=== PATIENT | male | born 1955 | race Caucasian/White ===

== ENCOUNTER 2019-01-20 20:17 | Emergency (ER) | payer BC ==
[~2019-01-20] VITALS: Ht 180.3 cm; Wt 74.8 kg
--- NOTE | 2019-01-20 20:20 | NUR ---
PT BIB [facility] WITH A C/O L SHOULDER PAIN S/P TRIP AND FALL. PT THEN HAD A NEAR SYNCOPAL EPISODE WITH EMS. PT HAS AND IV AIRPLANE TESTER AND REC'D 200 ML NS IN THE FIELD. PT IS ON THE MONITOR AND CONITINUOUS PULSE OX. PT WILL CONTINUE TO BE MONITORED.
--- NOTE | 2019-01-20 20:45 | NUR ---
XRAY IN PROGRESS AT THE BEDSIDE.
[2019-01-20] MEDS ORDERED: ACETAMINOPHEN 325 MG TABLET PO ONE (21:00)
[2019-01-20] MEDS ORDERED: ACETAMINOPHEN 325 MG TABLET ONE (21:08)
[2019-01-20] MEDS ORDERED: PROPOFOL 20 ML IV ONE (21:28)
[2019-01-20] MEDS ORDERED: PROPOFOL 200 MG/20 ML VIAL IV ONE (21:30)
--- NOTE | 2019-01-20 21:39 | NUR ---
CONSENT SIGNED FOR MODERATE SEDATION FOR LT SHOULDER REDUCTION AND IS IN THE CHART.
--- NOTE | 2019-01-20 21:39 | NUR ---
ANASTASIA BARBOZA, NATHANAEL, KISHAN AND RT ENE IS AT THE BEDSIDE.
--- NOTE | 2019-01-20 21:59 | NUR ---
RT CALLED TO PT BEDSIDE FOR CONSCIENCE SEDATION PT RESTING COMFORTABLY ON ROOM AIR PT PLACED ON N/C 2L FOR PROCEDURE PT SPO2 REMAINED AT 99-100% SPO2 THROUGHOUT PROCEDURE, WITH NO RESP DISTRESS NOTED.
--- NOTE | 2019-01-20 23:35 | NUR ---
IV removed. Catheter intact and site benign. Pressure and 4x4 applied to site. No bleeding noted. Patient discharged to home in stable condition. Written and verbal after care instructions given. Patient verbalizes understanding of instruction AND RX. PT AMBULATED OUT WITH A STEADY GAIT. PT'S FAMILY IS DRIVING PT HOME. VSS. NAD NOTED. PT HAD AN IMMOBILIZER ON HIS LUE.
[2019-01-21 00:36] VITALS: BP 136/76
== END 2019-01-20 23:35 | disposition home or self-care (01) ==
LOC: ER 20:25
DX: S43.015A Anterior dislocation of left humerus, initial encounter (principal); E78.00 Pure hypercholesterolemia, unspecified; W18.39XA Other fall on same level, initial encounter; Y93.01 Activity, walking, marching and hiking; Y92.009 Unspecified place in unspecified non-institutional (private) residence as the place of occurrence of the external cause; Y99.8 Other external cause status
CPT/HCPCS: 23650; 73030 ×2; 73060; 99152; 99285; J2704; J7030; G0500